=== PATIENT | female | born 1990 | race African-American/Black ===

== ENCOUNTER 2018-01-25 17:59 | Emergency (ER) | payer SELFPAY ==
[2018-01-25] MEDS ORDERED: NA CHLORIDE 0.9% 1,000 ML ONE (19:47)
[2018-01-25 20:15] LABS: Absolute Monocytes 0.5 K/uL (0.1-1.3); Absolute Neutrophil 7.3 K/uL (1.8-8.0); Basophils % 0.3 % (0-1.3); Hematocrit 41.2 % (36.0-45.0); MCH 29.5 pg (27.0-35.0); MPV 8.6 fL (7.6-11.3); Monocytes % 5.5 % (3.3-12.3); RBC Red Blood Cell Count 4.74 M/uL (3.86-4.86)
[2018-01-25 20:35] LABS: ALT/SGPT 15 U/L (12-78); AST/SGOT 15 U/L (15-37); Albumin 4.8 g/dL (3.4-5.0); Alkaline Phosphatase 74 U/L (45-117); BUN Blood Urea Nitrogen 5 mg/dL (7-18); Bicarbonate 25 mmol/L (21-32); Bilirubin Direct 0.3 mg/dL (0-0.2); Bilirubin Total 1.9 mg/dL (0.2-1.0); Creatine Phosphokinase 104 U/L (26-192); Glucose Level 122 mg/dL (74-106); Magnesium 2.1 mg/dL (1.8-2.4); Potassium 3.1 mmol/L (3.5-5.1); Sodium Level 135 mmol/L (136-145)
[2018-01-25] MEDS ORDERED: POTASSIUM 25 MEQ EFFERV TAB ONE (21:12)
[2018-01-25] MEDS ORDERED: LORazepam 2 MG/ML VIAL ONE (21:16)
[2018-01-25 21:42] LABS: Urine Blood 2+ (NEG); Urine Glucose NEGATIVE (NEG); Urine Protein NEGATIVE (NEG); Urine Specific Gravity 1.015 (1.005-1.030)
--- NOTE | 2018-01-25 22:03 | ER ---
Nurse's Notes [facility] Name: Naomy Rivera Age: 27 yrs Sex: Female : 1990 Arrival Date: 01/25/2018 Time: 18:03 Bed 20 Private MD: Diagnosis: Acute Weakness;Hypokalemia Presentation: 01/25 18:16 Presenting complaint: Patient states: "I have been shaking and unable to walk since lk1 yesterday. I can walk, but it feels like I will fall.". Transition of care: patient was not received from another setting of care. Onset of symptoms was January 24, 2018. Risk Assessment: Do you want to hurt yourself or someone else? Patient reports no desire to harm self or others. Initial Sepsis Screen: Does the patient meet any 2 criteria? No. Patient's initial sepsis screen is negative. Does the patient have a suspected source of infection? No. Patient's initial sepsis screen is negative. Care prior to arrival: None. 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 - Social history:: Smoking status: Patient/guardian denies using tobacco. - Ebola Screening: : No symptoms or risks identified at this time. - Family history:: not pertinent. - Hospitalizations: : No recent hospitalization is reported. Screenin:19 Abuse screen: Denies threats or abuse. Nutritional screening: No deficits noted. jd3 Tuberculosis screening: No symptoms or risk factors identified. Fall Risk Fall in past 12 months (25 points). Ambulatory Aid- None/Bed Rest/Nurse Assist (0 pts). Gait- Weak (10 pts.). Mental Status- Oriented to own ability (0 pts). Total Baeza Fall Scale indicates Low Risk Score (25-44 pts). Fall prevention measures have been instituted. Side Rails Up X 2 Placed close to Nursing Station Frequent Obs/Assesments occuring Family Present and informed to notify staff if they need to leave bedside. Assessment: 19:16 General: Appears in no apparent distress. uncomfortable, Behavior is cooperative, jd3 anxious, Reports fatigue for. Pain: Complains of pain in left ear Quality of pain is described as aching. Neuro: Level of Consciousness is awake, alert, obeys commands, Oriented to person, place, time, situation, Reports weakness. Cardiovascular: Heart tones S1 S2 present Capillary refill < 3 seconds Patient's skin is warm and dry. Respiratory: Airway is patent Respiratory effort is even, unlabored, Respiratory pattern is regular, symmetrical, Breath sounds are clear bilaterally. GI: Abdomen is flat, Bowel sounds present X 4 quads. Abd is soft and non tender X 4 quads. Reports nausea. : No signs and/or symptoms were reported regarding the genitourinary system. EENT: Tympanic membrane clear on left ear and right ear Ear canal clear on left ear and right ear Reports. Derm: Skin is intact, Skin is dry, Skin is normal, Skin temperature is warm. Musculoskeletal: Circulation, motion, and sensation intact. Range of motion: intact in all extremities, Reports stiffness in right leg. 20:30 Reassessment: Patient appears in no apparent distress at this time. Patient and/or jd3 family updated on plan of care and expected duration. Pain level reassessed. Patient is alert, oriented x 3, equal unlabored respirations, skin warm/dry/pink. 21:21 Reassessment: Patient appears in no apparent distress at this time. Patient and/or jd3 family updated on plan of care and expected duration. Pain level reassessed. Patient is alert, oriented x 3, equal unlabored respirations, skin warm/dry/pink. 22:12 Reassessment: Patient appears in no apparent distress at this time. Patient and/or jd3 family updated on plan of care and expected duration. Pain level reassessed. Patient is alert, oriented x 3, equal unlabored respirations, skin warm/dry/pink. pt reported understanding of discharge instructions. pt assisted to front of ER with wheelchair. Patient states feeling better. Vital Signs: 18:18 BP 130 / 80; Pulse 102; Resp 22; Temp 97.8(TE); Pulse Ox 100% on R/A; Weight 49.9 kg lk1 (R); Height 5 ft. 6 in. (167.64 cm) (R); Pain 0/10; 19:52 BP 134 / 83; Pulse 103; Resp 19 S; Pulse Ox 100% on R/A; Pain 0/10; jd3 21:20 BP 133 / 92; Pulse 91; Resp 17 S; Pulse Ox 100% on R/A; jd3 18:18 Body Mass Index 17.75 (49.90 kg, 167.64 cm) lk1 ED Course: 18:03 Patient arrived in ED. rg4 18:17 Triage completed. lk1 18:20 Arm band placed on right wrist. lk1 19:04 Rufino De La Vega RN is Primary Nurse. jd3 19:11 Richard Mcgill MD is Attending Physician. nc 19:20 Patient has correct armband on for positive identification. Bed in low position. Call jd3 light in reach. Side rails up X2. 19:43 Inserted saline lock: 22 gauge in right antecubital area, using aseptic technique. jd3 Blood collected. 22:15 No provider procedures requiring assistance completed. Patient did not have IV access jd3 during this emergency room visit. Administered Medications: 19:50 Drug: NS 0.9% 1000 ml Route: IV; Rate: 1 bolus; Site: right antecubital; jd3 21:05 Follow up: Response: No adverse reaction; IV Status: Completed infusion; IV Intake: jd3 1000ml 21:20 Drug: Potassium Effervescent Tablet 50 mEq Route: PO; jd3 22:16 Follow up: Response: No adverse reaction jd3 21:20 Drug: Ativan 0.5 mg Route: IVP; Site: right antecubital; jd3 22:16 Follow up: Response: No adverse reaction jd3 Intake: 21:05 IV: 1000ml; Total: 1000ml. jd3 Outcome: 22:02 Discharge ordered by . nc 22:15 Discharged to home ambulatory, with family. jd3 22:15 Condition: stable 22:15 Discharge instructions given to patient, family, Instructed on discharge instructions, follow up and referral plans. medication usage, Demonstrated understanding of instructions, follow-up care, medications, Prescriptions given X 2. 22:16 Patient left the ED. jd3 Signatures: Pricilla Borges RN RN Olive Mckinley rg4 Richard Mcgill MD MD wa Davies, Jonathon, RN RN jd3
--- NOTE | 2018-01-25 22:03 | EDPHYS ---
Physician Documentation [facility] Name: Naomy Rivera Age: 27 yrs Sex: Female : 1990 Arrival Date: 01/25/2018 Time: 18:03 Bed 20 Private MD: ED Physician Richard Mcgill HPI: 01/25 21:12 This 27 yrs old Black Female presents to ER via Wheelchair with complaints of Weakness. wa 21:12 The patient presents to the emergency department with weakness of the entire body, wa generalized weakness, c/o generalized weakness x 2 days. states feels generally shaky. also noted cramps in RLE. Onset: The symptoms/episode began/occurred 2 day(s) ago. Context: occurred at home, occurred while the patient was unsure of exact time of onset. Associated signs and symptoms: Pertinent positives: weakness, Pertinent negatives: altered mental status, chills, dizziness, fever, headache, nausea, paresthesias, seizure, syncope. Severity of symptoms: At their worst the symptoms were moderate in the emergency department the symptoms are unchanged. Patient's baseline: Neuro: alert and fully oriented, Motor: no deficits, Ambulation: walks without assistance, Speech: normal, The patient has a previous history of anxiety. Current symptoms: generalized weakness. RLE "charley horses". The patient has not experienced similar symptoms in the past. The patient has not recently seen a physician. 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 - Social history:: Smoking status: Patient/guardian denies using tobacco. - Ebola Screening: : No symptoms or risks identified at this time. - Family history:: not pertinent. - Hospitalizations: : No recent hospitalization is reported. ROS: 21:17 Eyes: Negative for injury, pain, redness, and discharge, ENT: Negative for injury, wa pain, and discharge, Neck: Negative for injury, pain, and swelling, Cardiovascular: Negative for chest pain, palpitations, and edema, Respiratory: Negative for shortness of breath, cough, wheezing, and pleuritic chest pain, Abdomen/GI: Negative for abdominal pain, nausea, vomiting, diarrhea, and constipation, Back: Negative for injury and pain, : Negative for injury, bleeding, discharge, and swelling, Skin: Negative for injury, rash, and discoloration. 21:17 Constitutional: Positive for fatigue, Negative for body aches, chills, fever, poor PO intake, weight loss. 21:17 MS/extremity: Positive for R thigh and hip cramps. 21:17 Neuro: Positive for weakness, Negative for altered mental status, dizziness, gait disturbance, headache, numbness. 21:17 All other systems are negative. Exam: 21:19 Constitutional: This is a well developed, well nourished patient who is awake, alert, wa and in no acute distress. Head/Face: Normocephalic, atraumatic. Eyes: Pupils equal round and reactive to light, extra-ocular motions intact. Lids and lashes normal. Conjunctiva and sclera are non-icteric and not injected. Cornea within normal limits. Periorbital areas with no swelling, redness, or edema. ENT: Nares patent. No nasal discharge, no septal abnormalities noted. Tympanic membranes are normal and external auditory canals are clear. Oropharynx with no redness, swelling, or masses, exudates, or evidence of obstruction, uvula midline. Mucous membranes moist. Neck: Trachea midline, no thyromegaly or masses palpated, and no cervical lymphadenopathy. Supple, full range of motion without nuchal rigidity, or vertebral point tenderness. No Meningismus. Cardiovascular: Regular rate and rhythm with a normal S1 and S2. No gallops, murmurs, or rubs. Normal PMI, no JVD. No pulse deficits. Respiratory: Lungs have equal breath sounds bilaterally, clear to auscultation and percussion. No rales, rhonchi or wheezes noted. No increased work of breathing, no retractions or nasal flaring. Abdomen/GI: Soft, non-tender, with normal bowel sounds. No distension or tympany. No guarding or rebound. No evidence of tenderness throughout. Back: No spinal tenderness. No costovertebral tenderness. Full range of motion. Skin: Warm, dry with normal turgor. Normal color with no rashes, no lesions, and no evidence of cellulitis. MS/ Extremity: Pulses equal, no cyanosis. Neurovascular intact. Full, normal range of motion. Psych: Awake, alert, with orientation to person, place and time. Behavior, mood, and affect are within normal limits. 21:19 Neuro: Orientation: is normal, Mentation: is normal, Cranial nerves: grossly normal, Cerebellar function: is grossly normal, Gait: is steady. Vital Signs: 18:18 BP 130 / 80; Pulse 102; Resp 22; Temp 97.8(TE); Pulse Ox 100% on R/A; Weight 49.9 kg lk1 (R); Height 5 ft. 6 in. (167.64 cm) (R); Pain 0/10; 19:52 BP 134 / 83; Pulse 103; Resp 19 S; Pulse Ox 100% on R/A; Pain 0/10; jd3 21:20 BP 133 / 92; Pulse 91; Resp 17 S; Pulse Ox 100% on R/A; jd3 18:18 Body Mass Index 17.75 (49.90 kg, 167.64 cm) lk1 MDM: 19:11 Patient medically screened. al 21:19 Data reviewed: vital signs, nurses notes. Test interpretation: by ED physician or al midlevel provider: low serum K noted. 2+ blood in UA. TSH nml. not anemic. ED course: c/o weakness. otherwise nml neuro exam. r/o electrolyte abnml, r/o anemia. check TSH. 22:01 Response to treatment: the patient's symptoms have markedly improved after treatment. al 01/25 19:29 Order name: TSH; Complete Time: 21:08 al 01/25 19:29 Order name: Basic Metabolic Panel; Complete Time: 21:07 al 01/25 19:29 Order name: CBC with Diff; Complete Time: 21:07 al 01/25 19:29 Order name: CPK; Complete Time: 21:08 al 01/25 19:29 Order name: LFT's; Complete Time: 21:07 al 01/25 19:29 Order name: Magnesium; Complete Time: 21:08 al 01/25 21:17 Order name: Urine Dipstick--Ancillary (enter results) [facility] 01/25 21:17 Order name: Urine --Ancillary (enter results) [facility] 01/25 21:17 Order name: Urine Dipstick-Ancillary; Complete Time: 21:42 EDAZ 01/25 21:17 Order name: Urine --Ancillary; Complete Time: 21:43 [facility] 01/25 19:29 Order name: Urine Test (obtain specimen); Complete Time: 21:20 al 01/25 19:29 Order name: EKG; Complete Time: 19:29 al 01/25 19:29 Order name: Cardiac monitoring; Complete Time: 19:35 al 01/25 19:29 Order name: EKG - Nurse/Tech; Complete Time: 19:49 al 01/25 19:29 Order name: IV Saline Lock; Complete Time: 19:49 al 01/25 19:29 Order name: Labs collected and sent; Complete Time: 19:50 al 01/25 19:29 Order name: Urine Dipstick-Ancillary (obtain specimen); Complete Time: 21:20 al Administered Medications: 19:50 Drug: NS 0.9% 1000 ml Route: IV; Rate: 1 bolus; Site: right antecubital; jd3 21:05 Follow up: Response: No adverse reaction; IV Status: Completed infusion; IV Intake: jd3 1000ml 21:20 Drug: Potassium Effervescent Tablet 50 mEq Route: PO; jd3 22:16 Follow up: Response: No adverse reaction jd3 21:20 Drug: Ativan 0.5 mg Route: IVP; Site: right antecubital; jd3 22:16 Follow up: Response: No adverse reaction jd3 Disposition: 01/25/18 22:02 Discharged to Home. Impression: Acute Weakness, Hypokalemia. - Condition is Stable. - Discharge Instructions: Weakness, [id number], Hypokalemia. - Prescriptions for Keflex 500 mg Oral Capsule - take 1 capsule by ORAL route every 8 hours for 3 days; 6 capsule. Potassium Chloride 20 meq Oral Packet - take 1 packet by ORAL route once daily for 6 days 1 packet in 6 (six) ounces of water or juice; Take after meal; 6 packet. - Medication Reconciliation Form, Thank You Letter, Antibiotic Education, Prescription Opioid Use form. - Follow up: Private Physician; When: 2 - 3 days; Reason: Re-evaluation by your physician. - Problem is new. - Symptoms have improved. - Notes: follow up with your doctor for further evaluation if no improvement in your symptoms. take medicines as prescribed Signatures: Dispatcher [employer] [facility] Pricilla Borges RN RN lk1 Richard Mcgill MD MD wa Davies, Jonathon, RN RN jd3 Corrections: (The following items were deleted from the chart) 22:16 22:02 01/25/2018 22:02 Discharged to Home. Impression: Acute Weakness; Hypokalemia. jd3 Condition is Stable. Forms are Medication Reconciliation Form, Thank You Letter, Antibiotic Education, Prescription Opioid Use. Follow up: Private Physician; When: 2 - 3 days; Reason: Re-evaluation by your physician. Problem is new. Symptoms have improved. jim
[2018-01-25 22:20] VITALS: TEMP 97.8; O2SAT 100
[2018-01-25 22:22] VITALS: BP 133/92
--- NOTE | 2018-01-26 06:24 | EKG ---
Test Date: 2018-01-25 Test Time: 19:44:15 Manager Sterile Processing: PARVEZ MEASUREMENT RESULTS: Intervals: Rate: 106 WA: 130 QRSD: 66 QT: 340 QTc: 451 Kulm: P: 87 WA: 130 QRS: 38 T: 38 INTERPRETIVE STATEMENTS: Sinus tachycardia Nonspecific ST abnormality Abnormal ECG Compared to ECG 04/02/2017 02:08:01 ST (T wave) deviation now present Sinus rhythm no longer present Electronically Signed On 01-26-18 06:23:49 CDT by Darwin Adair
== END 2018-01-25 22:16 | disposition home or self-care (01) ==
LOC: ER 17:59
DX: R53.1 Weakness (principal); E87.6 Hypokalemia; Z88.5 Allergy status to narcotic agent
CPT/HCPCS: 36415; 80048; 80076; 81003; 81025; 82550; 83735; 84443; 85025; 93005; 96361; 96374; 99284; J7030

== ENCOUNTER 2018-04-05 08:56 | Emergency (ER) | payer SELFPAY ==
[2018-04-05 10:43] LABS: Absolute Lymphocytes (CBC) 1.2 K/uL (0.7-4.9); Absolute Monocytes 0.3 K/uL (0.1-1.3); Basophils % 0.3 % (0-1.3); Eosinophils % 0.2 % (0-4.4); Hematocrit 41.2 % (36.0-45.0); Lymphocytes % 18.9 % (15.3-44.8); MCH 29.6 pg (27.0-35.0); MCV 86.9 fL (80-100); MPV 8.2 fL (7.6-11.3); Monocytes % 4.7 % (3.3-12.3); RBC Red Blood Cell Count 4.74 M/uL (3.86-4.86)
[2018-04-05 10:59] LABS: ALT/SGPT 19 U/L (12-78); AST/SGOT 9 U/L (15-37); Albumin 4.3 g/dL (3.4-5.0); Alkaline Phosphatase 80 U/L (45-117); BUN Blood Urea Nitrogen 10 mg/dL (7-18); Bicarbonate 27 mmol/L (21-32); Bilirubin Direct 0.3 mg/dL (0-0.2); Glucose Level 95 mg/dL (74-106); Lipase 61 U/L (73-393); Potassium 3.5 mmol/L (3.5-5.1); Protein, Total 8.5 g/dL (6.4-8.2); Sodium Level 143 mmol/L (136-145)
[2018-04-05] MEDS ORDERED: NA CHLORIDE 0.9% 1,000 ML ONE (11:00)
[2018-04-05] MEDS ORDERED: ONDANSETRON 4 MG/2 ML VIAL ONE (11:00)
[2018-04-05 11:41] LABS: Urine Blood 2+ (NEG); Urine Glucose NEGATIVE (NEG); Urine Protein NEGATIVE (NEG); Urine Specific Gravity 1.015 (1.005-1.030); Urine pH 7.5 (5.0-7.0)
--- NOTE | 2018-04-05 11:42 | EDPHYS ---
Physician Documentation [facility] Name: Naomy Rivera Age: 27 yrs Sex: Female : 1990 Arrival Date: 04/05/2018 Time: 08:58 Bed 20 Private MD: None, None ED Physician Hitesh Angulo HPI: 04/05 11:44 This 27 yrs old Black Female presents to ER via Ambulatory with complaints of Vomiting, kdr Chest Pain. 11:49 The patient presents to the emergency department with nausea, that is mild, vomiting, kdr that is intermittent, abdominal pain, of the epigastric area and left upper quadrant. Onset: The symptoms/episode began/occurred suddenly, this morning. Possible causes: unknown. The symptoms are aggravated by nothing. The symptoms are alleviated by nothing. Associated signs and symptoms: The patient has no apparent associated signs or symptoms, Pertinent positives: abdominal pain, nausea, vomiting. Severity of symptoms: At their worst the symptoms were mild in the emergency department the symptoms have resolved. The patient has not experienced similar symptoms in the past. The patient has not recently seen a physician. 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 - Social history:: Smoking status: Patient/guardian denies using tobacco, Patient/guardian denies using alcohol, street drugs. - Ebola Screening: : Patient negative for fever greater than or equal to 101.5 degrees Fahrenheit, and additional compatible Ebola Virus Disease symptoms Patient denies exposure to infectious person Patient denies travel to an Ebola-affected area in the 21 days before illness onset No symptoms or risks identified at this time. ROS: 11:49 Constitutional: Negative for fever, chills, and weight loss, Eyes: Negative for injury, kdr pain, redness, and discharge, ENT: Negative for injury, pain, and discharge, Neck: Negative for injury, pain, and swelling, Cardiovascular: Negative for chest pain, palpitations, and edema, Respiratory: Negative for shortness of breath, cough, wheezing, and pleuritic chest pain, Back: Negative for injury and pain, : Negative for injury, bleeding, discharge, and swelling, MS/Extremity: Negative for injury and deformity, Skin: Negative for injury, rash, and discoloration, Neuro: Negative for headache, weakness, numbness, tingling, and seizure activity. Psych: Negative for depression, anxiety, suicide ideation, homicidal ideation, and hallucinations, Allergy/Immunology: Negative for hives, rash, and allergies, Endocrine: Negative for neck swelling, polydipsia, polyuria, polyphagia, and marked weight changes, Hematologic/Lymphatic: Negative for swollen nodes, abnormal bleeding, and unusual bruising. 11:49 Abdomen/GI: Positive for abdominal pain, nausea and vomiting, Negative for diarrhea, constipation, abdominal cramps, abdominal distension, anorexia, dysphagia, hematemesis, black/tarry stool, rectal pain, rectal bleeding, bowel incontinence. Exam: 11:49 Constitutional: This is a well developed, well nourished patient who is awake, alert, kdr and in no acute distress. Head/Face: Normocephalic, atraumatic. Eyes: Pupils equal round and reactive to light, extra-ocular motions intact. Lids and lashes normal. Conjunctiva and sclera are non-icteric and not injected. Cornea within normal limits. Periorbital areas with no swelling, redness, or edema. Neck: Trachea midline, no thyromegaly or masses palpated, and no cervical lymphadenopathy. Supple, full range of motion without nuchal rigidity, or vertebral point tenderness. No Meningismus. Chest/axilla: Normal chest wall appearance and motion. Nontender with no deformity. No lesions are appreciated. Cardiovascular: Regular rate and rhythm with a normal S1 and S2. No gallops, murmurs, or rubs. Normal PMI, no JVD. No pulse deficits. Respiratory: Lungs have equal breath sounds bilaterally, clear to auscultation and percussion. No rales, rhonchi or wheezes noted. No increased work of breathing, no retractions or nasal flaring. Back: No spinal tenderness. No costovertebral tenderness. Full range of motion. Skin: Warm, dry with normal turgor. Normal color with no rashes, no lesions, and no evidence of cellulitis. MS/ Extremity: Pulses equal, no cyanosis. Neurovascular intact. Full, normal range of motion. Neuro: Awake and alert, GCS 15, oriented to person, place, time, and situation. Cranial nerves II-XII grossly intact. Motor strength 5/5 in all extremities. Sensory grossly intact. Cerebellar exam normal. Normal gait. Psych: Awake, alert, with orientation to person, place and time. Behavior, mood, and affect are within normal limits. 11:49 Abdomen/GI: Inspection: abdomen appears normal, Bowel sounds: active, Palpation: soft, nontender. Vital Signs: 09:14 BP 157 / 91; Pulse 97; Resp 20; Temp 98.5; Pulse Ox 99% on R/A; Weight 48.08 kg; Height ch 5 ft. 6 in. (167.64 cm); Pain 7/10; 10:43 BP 155 / 89; Pulse 92; Resp 18; Pulse Ox 100% on R/A; hj 11:53 BP 150 / 85; Pulse 85; Resp 18; Pulse Ox 100% on R/A; hj 09:14 Body Mass Index 17.11 (48.08 kg, 167.64 cm) MDM: 11:41 Patient medically screened. [facility] 11:49 Data reviewed: vital signs, nurses notes, lab test result(s). Counseling: I had a kdr detailed discussion with the patient and/or guardian regarding: the historical points, exam findings, and any diagnostic results supporting the discharge/admit diagnosis, lab results, the need for outpatient follow up. 04/05 10:05 Order name: Basic Metabolic Panel; Complete Time: 11:39 [facility] 04/05 10:05 Order name: CBC with Diff; Complete Time: 11:39 [facility] 04/05 10:05 Order name: Creatinine for Radiology; Complete Time: 11:39 [facility] 04/05 10:05 Order name: Hepatic Function; Complete Time: 11:39 [facility] 04/05 10:05 Order name: Lipase; Complete Time: 11:39 [facility] 04/05 10:05 Order name: Urine Microscopic Only [facility] 04/05 10:05 Order name: IV Saline Lock; Complete Time: 10:37 [facility] 04/05 10:05 Order name: Labs collected and sent; Complete Time: 10:37 [facility] 04/05 10:05 Order name: Urine Dipstick-Ancillary (obtain specimen); Complete Time: 10:37 [facility] 04/05 11:19 Order name: Urine Dipstick--Ancillary (enter results) bd 04/05 11:20 Order name: Urine --Ancillary (enter results) bd Administered Medications: 10:47 Drug: NS 0.9% 1000 ml Route: IV; Rate: 1 bolus; Site: right antecubital; hj 11:54 Follow up: IV Status: Completed infusion; IV Intake: 1000ml 10:47 Drug: Zofran 4 mg Route: IVP; Site: right antecubital; hj 11:54 Follow up: Response: No adverse reaction; Nausea is decreased Disposition: 04/05/18 11:41 Discharged to Home. Impression: Abdominal and pelvic pain, Vomiting. - Condition is Stable. - Discharge Instructions: Nausea and Vomiting, Adult, [id number], Abdominal Pain, Adult, [id number]. - Prescriptions for promethazine 25 mg Oral Tablet - take 1 tablet by ORAL route every 6 hours As needed; 20 tablet. Pepcid 20 mg Oral Tablet - take 1 tablet by ORAL route every 12 hours for 5 days; 10 tablet. - Medication Reconciliation Form, Thank You Letter form. - Follow up: Private Physician; When: 2 - 3 days; Reason: If symptoms return, Further diagnostic work-up, Recheck today's complaints, Continuance of care, Re-evaluation by your physician. - Problem is new. - Symptoms are resolved. Signatures: Dispatcher [employer] EDDaylin Keenan RN RN Hitesh Angulo MD MD [facility] Rogerio Sweeney RN RN Corrections: (The following items were deleted from the chart) 11:54 11:41 04/05/2018 11:41 Discharged to Home. Impression: Abdominal and pelvic pain; hj Vomiting. Condition is Stable. Forms are Medication Reconciliation Form, Thank You Letter, Antibiotic Education, Prescription Opioid Use. Follow up: Private Physician; When: 2 - 3 days; Reason: If symptoms return, Further diagnostic work-up, Recheck today's complaints, Continuance of care, Re-evaluation by your physician. Problem is new. Symptoms are resolved. kdr
--- NOTE | 2018-04-05 11:42 | ER ---
Nurse's Notes [facility] Name: Naomy Rivera Age: 27 yrs Sex: Female : 1990 Arrival Date: 04/05/2018 Time: 08:58 Bed 20 Private MD: None, None Diagnosis: Abdominal and pelvic pain;Vomiting Presentation: 04/05 09:12 Presenting complaint: Patient states: chest pains for months, I have been here and they ch never find anything. my boyfriend says its my anxiety. I started panicking this morning and then it started vomiting. I think it might by my control causing me to have chest pains. I have the IUD. Transition of care: patient was not received from another setting of care. Onset of symptoms was 2016. Risk Assessment: Do you want to hurt yourself or someone else? Patient reports no desire to harm self or others. Initial Sepsis Screen: Does the patient meet any 2 criteria? No. Patient's initial sepsis screen is negative. Does the patient have a suspected source of infection? No. Patient's initial sepsis screen is negative. Care prior to arrival: None. 09:12 Method Of Arrival: Ambulatory 09:12 Acuity: KATHLEEN 3 ch Triage Assessment: 09:14 General: Appears in no apparent distress. comfortable, slender, Behavior is anxious, ch restless. Pain: Complains of pain in xyphoid area and mid-sternal area Pain currently is 7 out of 10 on a pain scale. GI: Reports nausea, vomiting. SKEINER: 09:14 LMP N/A - control method Historical: - Allergies: 09:14 Codeine; - Home Meds: :14 promethazine 25 mg Oral tab 1 tab every 6 hours [Active]; mirena [Active]; - PMHx: 09:14 Anxiety; - PSHx: 09:14 None; - Immunization history:: Adult Immunizations up to date. - Social history:: Smoking status: Patient/guardian denies using tobacco, Patient/guardian denies using alcohol, street drugs. - Ebola Screening: : Patient negative for fever greater than or equal to 101.5 degrees Fahrenheit, and additional compatible Ebola Virus Disease symptoms Patient denies exposure to infectious person Patient denies travel to an Ebola-affected area in the 21 days before illness onset No symptoms or risks identified at this time. Screenin:12 Abuse screen: Denies threats or abuse. Denies injuries from another. Nutritional hj screening: No deficits noted. Tuberculosis screening: No symptoms or risk factors identified. Fall Risk None identified. Assessment: 09:12 GI: Abdomen is non-distended. hj 09:12 General: Appears in no apparent distress. uncomfortable, slender, Behavior is calm, hj cooperative, appropriate for age. Pain: Complains of pain in chest and mid-sternal area and xyphoid area Pain currently is 5 out of 10 on a pain scale. Neuro: Level of Consciousness is awake, alert, obeys commands, Oriented to person, place, time, situation, Appropriate for age. Cardiovascular: Capillary refill < 3 seconds Patient's skin is warm and dry. Respiratory: Airway is patent Respiratory effort is even, unlabored, Respiratory pattern is regular, symmetrical. GI: Bowel sounds present X 4 quads. Abd is soft and non tender Reports upper abdominal pain. : No signs and/or symptoms were reported regarding the genitourinary system. EENT: No signs and/or symptoms were reported regarding the EENT system. Derm: No signs and/or symptoms reported regarding the dermatologic system. Musculoskeletal: No signs and/or symptoms reported regarding the musculoskeletal system. 10:43 Reassessment: provider in room;. hj 11:53 Reassessment: Patient and/or family updated on plan of care and expected duration. Pain hj level reassessed. Patient is alert, oriented x 3, equal unlabored respirations, skin warm/dry/pink. for D/C; instructions given;. Vital Signs: 09:14 BP 157 / 91; Pulse 97; Resp 20; Temp 98.5; Pulse Ox 99% on R/A; Weight 48.08 kg; Height ch 5 ft. 6 in. (167.64 cm); Pain 7/10; 10:43 BP 155 / 89; Pulse 92; Resp 18; Pulse Ox 100% on R/A; hj 11:53 BP 150 / 85; Pulse 85; Resp 18; Pulse Ox 100% on R/A; hj 09:14 Body Mass Index 17.11 (48.08 kg, 167.64 cm) ED Course: 08:58 Patient arrived in ED. mr 08:59 None, None is Private Physician. mr 09:10 Rittger, Hitesh, MD is Attending Physician. kdr 09:12 Patient has correct armband on for positive identification. Placed in gown. Bed in low hj position. Call light in reach. Side rails up X 1. 09:14 Triage completed. 09:14 Arm band placed on left wrist. Patient placed in an exam room, on a stretcher. 09:16 EKG done, by environmental services technician. reviewed by Hitesh Angulo MD. [facility] 09:16 No provider procedures requiring assistance completed. Initial lab(s) drawn, by ny, hj sent to lab. Inserted saline lock: 22 gauge in right antecubital area, using aseptic technique. Blood collected. 09:22 Rogerio Sweeney, RN is Primary Nurse. hj 11:53 IV discontinued, intact, bleeding controlled, No redness/swelling at site. Pressure hj dressing applied. Administered Medications: 10:47 Drug: NS 0.9% 1000 ml Route: IV; Rate: 1 bolus; Site: right antecubital; hj 11:54 Follow up: IV Status: Completed infusion; IV Intake: 1000ml 10:47 Drug: Zofran 4 mg Route: IVP; Site: right antecubital; hj 11:54 Follow up: Response: No adverse reaction; Nausea is decreased hj Intake: 11:54 IV: 1000ml; Total: 1000ml. Outcome: 11:41 Discharge ordered by . kdr 11:53 Discharged to home ambulatory. hj 11:53 Condition: stable 11:53 Discharge instructions given to patient, Instructed on discharge instructions, follow up and referral plans. medication usage, Demonstrated understanding of instructions, follow-up care, medications, Prescriptions given X 2. 11:54 Patient left the ED. hj Signatures: Daylin Lopez, RN RN Hitesh Angulo MD MD kdr Rivera, Maria mr Rogerio Sweeney, Mariama Nielsen RN 3
[2018-04-05 12:04] LABS: Urine Bacteria <20 /HPF (<20); Urine RBC <5 /HPF (NONE SEEN)
[2018-04-05 12:05] LABS: Urine Amorphous Sediment 1+ /HPF (NONE SEEN); Urine Culture Reflex Order NOT NEEDED
[2018-04-05 12:08] VITALS: TEMP 98.5
[2018-04-05 12:11] VITALS: O2SAT 100
[2018-04-05 12:12] VITALS: BP 150/85
--- NOTE | 2018-04-06 07:38 | EKG ---
Test Date: 2018-04-05 Test Time: 09:12:49 Marine Extension Agent: WENDIE MEASUREMENT RESULTS: Intervals: Rate: 103 NE: 130 QRSD: 74 QT: 344 QTc: 450 [place]: P: 68 NE: 130 QRS: 26 T: 32 INTERPRETIVE STATEMENTS: Sinus tachycardia Otherwise normal ECG Compared to ECG 01/25/2018 19:44:15 ST (T wave) deviation no longer present Electronically Signed On 04-06-18 07:34:39 CDT by Frank Holly
== END 2018-04-05 11:54 | disposition home or self-care (01) ==
LOC: ER 08:56
DX: R11.10 Vomiting, unspecified (principal); F41.9 Anxiety disorder, unspecified; Z88.5 Allergy status to narcotic agent
CPT/HCPCS: 36415; 80048; 80076; 81003; 81015; 81025; 83690; 85025; 93005; 96361; 96374; 99284; J2405; J7030

== ENCOUNTER 2020-03-29 23:33 | Inpatient (IN) | payer OTHER ==
--- OUTSIDE RECORDS SUMMARY | 2020-03-29 23:35 | XMS REPORT | Continuity of Care Document ---
:1990 Author Organization [facility] t Address [address] [place] [address] Dr. Valentin [address] [place] [id number] Care Team Providers Name Role Phone Unavailable Unavailable Unavailable Problems This patient has no known problems. Allergies, Adverse Reactions, Alerts This patient has no known allergies or adverse reactions. Medications This patient has no known medications. Procedures This patient has no known procedures. Results This patient has no known results.
[2020-03-30] MEDS ORDERED: Ringers Lactate 1,000 ML IV PRN (00:23)
[2020-03-30] MEDS ORDERED: CARBOPROST TROME 250 MCG/ML IM PRN (00:23)
[2020-03-30] MEDS ORDERED: METHYLERGONOVINE 0.2MG/ML AMP IM PRN (00:23)
--- NOTE | 2020-03-30 00:36 | P.OBGYNHP ---
Certification for Inpatient With expected LOS: <2 Midnights Patient will require the following post-hospital care: None Practitioner: I am a practitioner with admitting privileges, knowledge of patient current condition, hospital course, and medical plan of care. Services: Services provided to patient in accordance with Admission requirements found in Title 42 Section 412.3 of the Code of Federal Regulations Patient History Date of Service: 03/30/20 Primary Care Provider: Jarvis. Reason for admission: Labor History of Present Illness: 29 year old AAF @38w1d by LMP c/w 18 week US presents with regular contractions throughout day they became more intense within the last hour. Denies VB or LOF. +FM. Pt denies any recent fever or chills, sick contacts. Allergies codeine Allergy (Unknown, Verified 07/23/13 06:05) Hives Home medications list reviewed: Yes (PNV) Home Medications: Vitamin [ VITAMIN*] 1 tab PO DAILY 07/23/13 Hydrocodone/Acetaminophen [[place] 5-325 Tablet] 1 each PO Q6H PRN #20 tablet 07/24/13 - Past Medical/Surgical History Has patient received pneumonia vaccine in the past: Yes Diabetic: No Past Medical History: Patient denies medical history (P5. times 5. History of preciptous delivery. 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, .) -: Vaginal delivery 2007 and 2009 - Social History Alcohol use: No CD- Drugs: No Caffeine use: Yes Review of Systems Unremarkable General: Unremarkable Eyes: Unremarkable ENT: Unremarkable Respiratory: Unremarkable Cardiovascular: Unremarkable Gastrointestinal: Abdominal Pain (regular contractions) Genitourinary: Frequency Musculoskeletal: Unremarkable Integumentary: Unremarkable Neurological: Unremarkable Lymphatics: Unremarkable Physical Examination - Vital Signs Temperature: 98.5 F Blood Pressure: 122/84 Pulse: 86 Respirations: 18 Pulse Ox (%): 100 - General General: Oriented x3, Mild distress (pain with contractions) HEENT: Atraumatic, Normocephalic Neck: Supple Respiratory: Clear to auscultation bilaterally Cardiovascular: No edema, Normal pulses Capillary refill: <2 Seconds Gastrointestinal: No tenderness (gravid, firm with contractions) Musculoskeletal: No swelling Integumentary: No rashes Neurological: Normal speech, Normal tone - Female Pelvic External genitalia: Normal Cervix: Non-tender, Dilation (5), Effacement (60), station (-3) Uterus: Gravid Adnexa: Unable to evaluate - Obstetrics heart rate tracing: Category 1 Contractions: Frequency (q5-8min) Amniotic membrane: Intact Assessment and Plan - Plan 29 year old @38w1d in active labor -Admit -IV fluids -Admit labs+ Covid testing -Continous toco and monitoring -Epidural as desired -Anticipate -grandmultip at risk for PPH. Discharge Plan: Home - Advance Directives Does patient have a Living Will: No Does patient have a Durable POA for Healthcare: No - Code Status/Comfort Care Code Status Assessed: Yes Code Status: Full Code Physician Review: Patient Assessed, Agree with Above Assessment and Plan Time Spent Managing Pts Care (In Minutes): 50
[2020-03-30] MEDS ORDERED: FENTANYL/BUPIVACAINE/NS/PF 200 MCG/100 ML BAG EP PRN (00:46)
[2020-03-30] MEDS ORDERED: FENTANYL CITR 100 MCG/2 ML IV ONE (00:46)
[2020-03-30] MEDS ORDERED: Ringers Lactate 1,000 ML IV SCH (01:00)
[2020-03-30] MEDS ORDERED: miSOPROStoL 100 MCG TAB ONE ×2 (01:03→03:23)
[2020-03-30 01:04] LABS: Absolute Lymphocytes (CBC) 1.6 K/uL (0.7-4.9); Basophils % 0.2 % (0-1.3); Hematocrit 37.6 % (36.0-45.0); Lymphocytes % 16.2 % (15.3-44.8); MPV 8.1 fL (7.6-11.3); RBC Red Blood Cell Count 4.15 M/uL (3.86-4.86)
[2020-03-30] MEDS ORDERED: LIDOCAINE 1% MPF 30 ML VIAL ONE (01:04)
--- NOTE | 2020-03-30 01:14 | P.PN ---
Date of Service: 03/30/20 Pt calling out with increased vaginaL pressure. Denies LOF. FHR cat 2 occasional variables toco: q3-6min SVE: /-2 BBOW A/P: 38w1d active labor Plt 147, Anesthesia provider notified-Epidural desired Plan Reassuring status MCS
[2020-03-30 01:19] VITALS: BMI 19.8
[2020-03-30] MEDS ORDERED: BUPIVACAINE 0.25% PF 30 ML VIAL ONE (01:27)
[2020-03-30 01:46] LABS: Urine Appearance CLEAR; Urine Bilirubin NEGATIVE (NEG); Urine Blood NEGATIVE (NEG); Urine Color YELLOW; Urine Glucose NEGATIVE (NEG); Urine Protein NEGATIVE (NEG); Urine Specific Gravity 1.015 (1.005-1.030)
[2020-03-30 01:47] LABS: Urine Microscopic Reflex NO UMIC
--- NOTE | 2020-03-30 02:05 | P.PN ---
Date of Service: 03/30/20 Pt comfortable with epidural FHR cat 2 occasional variables toco: q3-4min SVE: /-2 BBOW AROM clear A/P: 29 yo labor Aniticipate Recent lab results pt covid positive. Reviewed CDC recs, pt lives at home with kids only. MCS
[2020-03-30] MEDS ORDERED: OXYTOCIN/LR 20 UNIT/1,000 ML BAG IV ONE (03:02)
[2020-03-30] MEDS ORDERED: ACETAMINOPHEN 500 MG TAB PO PRN (03:40)
[2020-03-30] MEDS ORDERED: ONDANSETRON 4 MG/2 ML VIAL IV PRN (03:40)
[2020-03-30] MEDS ORDERED: Tdap (Diph,Pertuss(Acell),Tet Vac) 0.5 ML SYR IMVAC ONE (03:40)
--- NOTE | 2020-03-30 03:50 | P.OP ---
Sales Director: LISE Hester (Delivering ) Preoperative diagnosis: 29 year old @38w1d labor, FD//2 Postoperative diagnosis: same Primary procedure: Vaginal delivery Anesthesia: Epidural Estimated blood loss: 100 Specimen: cord blood Findings: [facility] Operative Technique: Physician assisted vaginal delivery Complications: None Complications: Patient progressed to FD. WIth maternal forces pt delivered head over an intact perineum. SHoulders and body delivered with ease. Mouth suctioned. Baby to mom's chest. Delayed cord clamping performed. Placenta delivered intact. IV pitocin and 600mcg pr Cytotec placed to prevent PPH. Mother and baby doing well. Condition: Good
[2020-03-30] MEDS ORDERED: Ringers Lactate 2,000 ML IV ONE (07:13)
[2020-03-30] MEDS ORDERED: PRENATAL VITAMIN PO SCH (09:00)
[2020-03-30] MEDS: IBUPROFEN 200 MG TAB PO PRN ×3 (10:15→22:39)
--- NOTE | 2020-03-30 10:22 | PN ---
Naomy Rivera is a 29-year-old multiparous female, approximately 38+ weeks, came in active labor, delivered by Dr. Hester. Estimated blood loss 100 cc. She was given 6 Cytotec tablets 100 mcg each rectally at the time of delivery. No laceration sustained .This morning She is afebrile, ambulating. She has no complaints or problems. She will get the Tdap shot she says before she leaves the hospital. We went over full talk, but will go over again tomorrow. She is COVID positive. She knows quarantine measures should be instituted at home. She has absolutely zero symptoms. No post epidural problems as well. Final Diagnoses: Term intrauterine 38+ weeks vaginal delivery, epidural anesthesia. Positive COVID status. TED/GENEVA Voice ID: [id number] Report ID: [id number] MTDD
[2020-03-30 23:33] LABS: RPR (Rapid Plasma Reagin) NON-REACT (NON-REACT)
[2020-03-31] MEDS ORDERED: Tdap (Diph,Pertuss(Acell),Tet Vac) 0.5 ML SYR IMVAC ONE (07:12)
[2020-03-31] MEDS: IBUPROFEN 200 MG TAB PO PRN (07:16)
[2020-03-31 08:01] VITALS: BP 135/81; TEMP 96.6
--- NOTE | 2020-04-01 03:46 | DS ---
Date of Discharge: 03/31/2020 Hospital Course: A 29-year-old 6, para 4, uneventful delivery with 100 cc blood loss. No ep isiotomy. No lacerations. Rh positive, immune to rubella. Negative beta strep screen. Positive CO VID status. This has been discussed thoroughly with the patient. She did not get her Tdap immunizat ion during her , but has had it in the period. Requests no analgesics. To repor t back to my office in 6 weeks for followup. To report any temperature elevation of 100 degrees or g reater, severe pain, heavy bleeding, or any other type of abnormalities. She knows that she should q uarantine for about 2 weeks. Final Diagnoses: Term intrauterine . Spontaneous vaginal delivery. Positive COVID status. Tdap administered. TED/GENEVA Voice ID: [id number] Report ID: [id number]
== END 2020-03-31 10:05 | disposition home or self-care (01) | DRG 805 ==
LOC: L&D 23:33 → 2ND-WC 03-30 00:21
PROVIDERS: ATTEND Specialist
PROC: 10E0XZZ Delivery of Products of Conception, External Approach (ICD-10-PCS; principal; 2020-03-30)
DX: O98.52 Other viral diseases complicating childbirth (principal); U07.1 COVID-19; Z37.0 Single live birth; Z3A.38 38 weeks gestation of pregnancy; Z88.5 Allergy status to narcotic agent; Z79.891 Long term (current) use of opiate analgesic
CPT/HCPCS: 36415; 81003; 85025; 86592; 86901; 87340; 90471; 90715; G0433; J2210; J2590; J3010; J7120; U0003